=== PATIENT | male | born 1965 | race Caucasian/White ===

== ENCOUNTER 2021-12-25 09:29 | Emergency (ER) | payer SELFPAY ==
[~2021-12-25] VITALS: Ht 180.3 cm; Wt 91.0 kg
[2021-12-25] MEDS ORDERED: MORPHINE SULFATE 4 MG/ML CPJ (NOT FOR IM USE) IV STA (09:36)
[2021-12-25] MEDS ORDERED: HYDR-4001 MT (11:54)
[2021-12-25 12:09] VITALS: BP 131/86
== END 2021-12-25 12:11 | disposition home or self-care (01) ==
LOC: ER 09:29
DX: S82.891A Other fracture of right lower leg, initial encounter for closed fracture (principal); V09.9XXA Pedestrian injured in unspecified transport accident, initial encounter; Y93.89 Activity, other specified; Y92.89 Other specified places as the place of occurrence of the external cause; Y99.8 Other external cause status
CPT/HCPCS: 27840; 73600; 73610; 96374; 99284; J2270; Z7610